=== PATIENT | female | born 1955 | race American Indian/Alaskan Native ===

== ENCOUNTER 2020-09-13 04:36 | Emergency (ER) | payer MEDICARE ==
--- NOTE | 2020-09-13 05:35 | XRay Report ---
CHEST 1 VIEW INDICATION: Chest Pain. COMPARISON: None FINDINGS: SUPPORT DEVICES: None. HEART: Within normal limits. LUNGS/PLEURA: No acute air space or interstitial disease. ADDITIONAL FINDINGS: None. IMPRESSION: 1. No acute findings. Signer Name: Larry Guzman MD Signed: 09/13/2020 5:31 AM Workstation Name: [id number]
[2020-09-13 05:47] LABS: Basophils % (Auto) 0.8 % (0.0-1.8); Eosinophils # (Auto) 0.3 K/mm3 (0.0-0.4); Eosinophils % (Auto) 4.5 % (0.0-4.3); Hematocrit 36.8 % (30.3-42.9); Hemoglobin 12.1 gm/dl (10.1-14.3); Lymphocytes # (Auto) 1.9 K/mm3 (1.2-5.4); Lymphocytes % (Auto) 29.7 % (13.4-35.0); Mean Corpuscular HGB Conc 33 % (30-34); Mean Corpuscular Volume 87 fl (79-97); Monocytes # (Auto) 0.4 K/mm3 (0.0-0.8); Monocytes % (Auto) 6.9 % (0.0-7.3); Platelet Count 229 K/mm3 (140-440); Red Blood Count 4.21 M/mm3 (3.65-5.03); Red Cell Distribution Width 14.6 % (13.2-15.2)
[2020-09-13 06:28] LABS: Blood Urea Nitrogen 23 mg/dL (7-17); Calcium 9.1 mg/dL (8.4-10.2); Hemolysis Index 2
[2020-09-13 06:29] LABS: BUN/Creatinine Ratio 38
--- NOTE | 2020-09-13 11:44 | Emergency Department Report ---
ED General Adult HPI - General Chief complaint: Chest Pain Stated complaint: BACK PAINS PUI?: No Source: patient Mode of arrival: Ambulatory Limitations: No Limitations - History of Present Illness Initial comments: This is a 64-year-old female with no prior medical history presents the ED today complaining of lower right-sided buttock pain stating that she fell down a couple days ago. Patient states she tripped and fell down 2 steps. Patient states that she is ambulatory able to walk without any problems. Patient states she feels aching/throbbing mild pain to the right lower buttock region. She denies fever, chills, chest pain, loss of consciousness after incident, headache, head pain or any other complaints. Location: back, buttocks, right Radiation: non-radiation Severity scale (0 -10): 7 Quality: aching Consistency: intermittent Worsens with: movement Treatments Prior to Arrival: NSAID - Related Data Previous Rx's Medication Instructions Recorded Last Taken Type Naproxen [Naprosyn] 500 mg PO BID #30 tablet 08/13/16 Unknown Rx Cyclobenzaprine [Flexeril] 10 mg PO QHS PRN #20 tablet 09/13/[address] [Ashley Lilly] 75 mg PO BID #20 tablet 09/13/20 Unknown Rx Allergies Allergy/AdvReac Type Severity Reaction Status Date / Time No Known Allergies Allergy Unverified 08/13/16 18:22 ED Review of Systems ROS: Stated complaint: BACK PAINS Other details as noted in HPI Comment: All other systems reviewed and negative ED Past Medical Hx - Past Medical History Previous Medical History?: No Additional medical history: Abd. pain with fallopian tube blockage - Surgical History Past Surgical History?: Yes Additional Surgical History: Fallopian tube unblocked - Social History Smoking Status: Never Smoker Substance Use Type: None - Medications Home Medications: Home Medications Medication Instructions Recorded Confirmed Last Taken Type Naproxen [Naprosyn] 500 mg PO BID #30 tablet 08/13/16 Unknown Rx Cyclobenzaprine [Flexeril] 10 mg PO QHS PRN #20 tablet 09/13/[address] [Ashley Lilly] 75 mg PO BID #20 tablet 09/13/20 Unknown Rx ED Physical Exam - General Limitations: No Limitations General appearance: alert, in no apparent distress - Head Head exam: Present: atraumatic, normocephalic - Eye Eye exam: Present: normal appearance - ENT ENT exam: Present: mucous membranes moist - Neck Neck exam: Present: normal inspection, full ROM. Absent: tenderness - Respiratory Respiratory exam: Present: normal lung sounds bilaterally. Absent: respiratory distress - Cardiovascular Cardiovascular Exam: Present: regular rate, normal rhythm. Absent: systolic murmur, diastolic murmur, rubs, gallop - GI/Abdominal GI/Abdominal exam: Present: soft, normal bowel sounds - Extremities Exam Extremities exam: Present: normal inspection, full ROM - Back Exam Back exam: Present: normal inspection, full ROM, tenderness (To palpation of the right latissimus dorsi muscle.), paraspinal tenderness (No cervical, thoracic or lumbar spine tenderness). Absent: CVA tenderness (L), vertebral tenderness - Neurological Exam Neurological exam: Present: alert, oriented X3 - Psychiatric Psychiatric exam: Present: normal affect, normal mood - Skin Skin exam: Present: warm, dry, intact, normal color. Absent: rash ED Course Vital Signs 09/13/20 04:55 Temperature 98.1 F Pulse Rate 95 H Respiratory 16 Rate Blood Pressure 117/79 O2 Sat by Pulse 97 Oximetry ED Medical Decision Making - Lab Data Result diagrams: 09/13/20 05:13 09/13/20 05:13 Laboratory Last Values WBC 6.4 K/mm3 (4.5-11.0) 09/13/20 05:13 RBC 4.21 M/mm3 (3.65-5.03) 09/13/20 05:13 Hgb 12.1 gm/dl (10.1-14.3) 09/13/20 05:13 Hct 36.8 % (30.3-42.9) 09/13/20 05:13 MCV 87 fl (79-97) 09/13/20 05:13 MCH 29 pg (28-32) 09/13/20 05:13 MCHC 33 % (30-34) 09/13/20 05:13 RDW 14.6 % (13.2-15.2) 09/13/20 05:13 Plt Count 229 K/mm3 (140-440) 09/13/20 05:13 Lymph % (Auto) 29.7 % (13.4-35.0) 09/13/20 05:13 [place] % (Auto) 6.9 % (0.0-7.3) 09/13/20 05:13 Eos % (Auto) 4.5 % (0.0-4.3) H 09/13/20 05:13 Baso % (Auto) 0.8 % (0.0-1.8) 09/13/20 05:13 Lymph # (Auto) 1.9 K/mm3 (1.2-5.4) 09/13/20 05:13 [place] # (Auto) 0.4 K/mm3 (0.0-0.8) 09/13/20 05:13 Eos # (Auto) 0.3 K/mm3 (0.0-0.4) 09/13/20 05:13 Baso # (Auto) 0.0 K/mm3 (0.0-0.1) 09/13/20 05:13 Seg Neutrophils % 58.1 % (40.0-70.0) 09/13/20 05:13 Seg Neutrophils # 3.8 K/mm3 (1.8-7.7) 09/13/20 05:13 Sodium 143 mmol/L (137-145) 09/13/20 05:13 Potassium 3.9 mmol/L (3.6-5.0) 09/13/20 05:13 Chloride 107.7 mmol/L (98-107) H 09/13/20 05:13 Carbon Dioxide 27 mmol/L (22-30) 09/13/20 05:13 Anion Gap 12 mmol/L 09/13/20 05:13 BUN 23 mg/dL (7-17) H 09/13/20 05:13 Creatinine 0.6 mg/dL (0.6-1.2) 09/13/20 05:13 Estimated GFR > 60 ml/min 09/13/20 05:13 BUN/Creatinine Ratio 38 % 09/13/20 05:13 Glucose 101 mg/dL (65-100) H 09/13/20 05:13 Calcium 9.1 mg/dL (8.4-10.2) 09/13/20 05:13 Troponin T < 0.010 ng/mL (0.00-0.029) 09/13/20 09:04 - EKG Data EKG shows normal: sinus rhythm Rate: normal - EKG Data Interpretation: normal EKG - Radiology Data Radiology results: report reviewed, image reviewed CHEST 1 VIEW INDICATION: Chest Pain. COMPARISON: None FINDINGS: SUPPORT DEVICES: None. HEART: Within normal limits. LUNGS/PLEURA: No acute air space or interstitial disease. ADDITIONAL FINDINGS: None. IMPRESSION: 1. No acute findings. Signer Name: Larry Guzman MD Signed: 09/13/2020 5:31 AM Workstation Name: [id number] Transcribed By: TAMIA Dictated By: Larry Guzman MD Electronically Authenticated By: Larry Guzman MD Signed Date/Time: 09/13/20 0531 - Medical Decision Making 64-year-old female presents to ED with myalgia is status post fall down 2 steps 2 days ago ED course: Patient had blood work and EKG and x-rays completed due to complaints of some c hest pain during triage. Upon my evaluation of patient patient denies any chest pain states that pain in the chest pain is resolved. Patient states she is just having pain to the lower buttock region secondary to fall. Vital signs are normal patient is in no acute distress. All labs EKG and x-ray are normal Discussed with patient follow-up with primary care physician. Discussed the patient and take medications as prescribed. Patient has no neurological deficit. Patient is alert and oriented 3 and understands all instructions given. Discussed drowsiness effect of Flexeril makes her drowsy and not to operate machinery while taking flexeril Critical care attestation.: If time is entered above; I have spent that time in minutes in the direct care of this critically ill patient, excluding procedure time. ED Disposition Clinical Impression: Fall down steps, Lower back pain, Myalgia Disposition: TO HOME OR SELFCARE Is pt being admited?: No Does the pt Need Aspirin: No Condition: Stable Instructions: Musculoskeletal Pain, Fall Prevention in the Home, Adult, [id number], Radicular Pain Additional Instructions: Make sure to follow up with the primary care physician as discussed. Take all your medications as you've been prescribed. If you have any worsening symptoms or develop new symptoms please return to ED immediately. Referrals: PRIMARY CARE, [Primary Care Provider] - 3-5 Days [facility] [Outside] - 3-5 Days [facility] [Outside] - 3-5 Days Forms: Work/School Release Form(ED) Time of Disposition: :50
[2020-09-13 11:53] VITALS: BP 109/54
== END 2020-09-13 11:55 | disposition home or self-care (01) ==
LOC: ED 04:36
DX: M54.5 Low back pain (principal); M79.10 Myalgia, unspecified site; Z79.899 Other long term (current) drug therapy; Z98.890 Other specified postprocedural states; W10.9XXA Fall (on) (from) unspecified stairs and steps, initial encounter; Y93.89 Activity, other specified; Y92.89 Other specified places as the place of occurrence of the external cause; Y99.8 Other external cause status
CPT/HCPCS: 36415; 71045; 80048; 84484; 85025; 93005